=== PATIENT | female | born 1985 | race Caucasian/White ===

== ENCOUNTER 2025-01-27 10:31 | Day surgery (SDC) | payer MEDICAID ==
[~2025-01-27 10:31] MED LIST: DEXAMETHASONE SOD PHOSPHATE 4 MG/ML 1 ML VIAL IV ONE; HYDROmorphone 0.5 MG/0.5 ML SYRINGE IVP PRN; LIDOCAINE 1% (10MG/ML) FOR IV START INTRADERMA PRN; ONDANSETRON 4 MG/2 ML VIAL IVP ONE; fentaNYL (PF) 50 MCG/ML 2 ML AMP IVP PRN
[2025-01-27] MEDS: IV FLUID CONTINUATION 1,000 ML IV ONE (11:31)
[2025-01-27 11:37] VITALS: TEMP 97.3
[2025-01-27] MEDS: LACTATED RINGERS 1,000 ML IV SCH (11:42)
[2025-01-27] MEDS: MIDAZOLAM 2 MG/2 ML VIAL IV PRN (12:02)
[2025-01-27] MEDS ORDERED: PROPOFOL 10 MG/ML 20 ML VIAL IV ONE (12:12)
--- NOTE | 2025-01-27 12:27 | P.PCN ---
Date of Procedure: 01/27/25 Procedure(s) Performed: Brief history: Patient is a pleasant 39-year-old white female scheduled for scheduled for an elective upper endoscopy as well as colonoscopy as a part of evaluation of GERD and left lower quadrant abdominal pain Procedure performed: Esophagogastroduodenoscopy with biopsy Colonoscopy with snare polypectomy Preoperative diagnosis: GERD Left lower quadrant abdominal pain Anesthesia: MAC Procedure: After informed consent was obtained from the patient was brought into the endoscopy unit and IV sedation was administered by anesthesia under continuous monitoring. Initially upper endoscopy was done. The Olympus GF 160 video endoscope was inserted inserted into the mouth and esophagus intubated without any difficulty and was gradually advanced into the stomach and duodenum and carefully examined. The bulb and second part of the duodenum appeared normal. The scope was then withdrawn into the stomach adequately insufflated with air and upon careful examination the antrum had mild gastritis and biopsies were done from this area. Mucosa of the body, cardia and fundus appeared normal. The scope was then withdrawn into the esophagus. Small hiatal hernia noted the GE junction was located at 40 cm to the incisors. It appeared regular with linear erosions of the distal esophagus consistent with LA grade B reflux esophagitis.. Rest of the esophagus appeared normal. Patient tolerated the procedure well. At this time the patient continued to remain sedation. Initial digital rectal examination was normal. Olympus CF 160 video colonoscope was then inserted into the rectum and gradually advanced to the cecum without any difficulty. Careful examination was performed as the scope was gradually being withdrawn. The prep was excellent. The cecum, ascending colon, transverse colon, descending colon, sigmoid colon and rectum appeared normal. In the rectum there was a 4 mm polyp that was removed by cold snare polypectomy. Retroflexion was performed in the rectum and no lesions were noted. Patient tolerated the procedure well. Impression: 1. Upper endoscopy gastritis, small hiatal hernia and linear erosions of the distal esophagus consistent with LA grade B reflux esophagitis. 2. Colonoscopy revealed 4 mm rectal polyp status post cold snare polypectomy and the rest of the colon appeared normal ence of colorectal neoplasia Recommendations: Findings of this examination were discussed with the patient as well as the family. She was advised to follow-up with the biopsy results. Increase Protonix to 40 mg twice daily and follow antireflux measures. Follow-up in the office in 3 to 4 weeks.
[2025-01-27 14:02] VITALS: BP 110/70; PULSE 70
[2025-01-27 14:03] VITALS: RESP 14
== END 2025-01-27 13:23 | disposition home or self-care (01) ==
LOC: ORWHC2ENDO 10:31
PROVIDERS: ATTEND Internal Medicine Gastroenterology
DX: K29.70 Gastritis, unspecified, without bleeding (principal); D12.8 Benign neoplasm of rectum; K21.9 Gastro-esophageal reflux disease without esophagitis; K44.9 Diaphragmatic hernia without obstruction or gangrene; F41.9 Anxiety disorder, unspecified; F32.A Depression, unspecified; Z88.0 Allergy status to penicillin; Z88.5 Allergy status to narcotic agent; Z79.899 Other long term (current) drug therapy
CPT/HCPCS: 81025; 88305; 45385; 43239; J2250; J2704